=== PATIENT | female | born 1960 | race Native Hawaiian/Other Pacific Islander ===

== ENCOUNTER 2020-03-04 16:36 | Emergency (ER) | payer OTHER ==
[~2020-03-04] VITALS: Ht 165.1 cm; Wt 79.4 kg
[2020-03-04] MEDS ORDERED: BENADRYL ALLERG25 MG PO (18:11)
[2020-03-04 19:02] VITALS: BP 118/80; TEMP 97.7
== END 2020-03-04 19:06 | disposition home or self-care (01) ==
LOC: ED 16:36
DX: S93.491A Sprain of other ligament of right ankle, initial encounter (principal); X50.1XXA Overexertion from prolonged static or awkward postures, initial encounter; Y92.89 Other specified places as the place of occurrence of the external cause
CPT/HCPCS: 99283

== ENCOUNTER 2020-09-06 17:59 | Emergency (ER) | payer OTHER ==
[~2020-09-06] VITALS: Ht 165.1 cm; Wt 79.4 kg
[~2020-09-06 17:59] MED LIST: BENADRYL ALLERG25 MG PO
[2020-09-06 18:15] VITALS: TEMP 97.6
[2020-09-06 18:34] LABS: PLATELET COUNT 306 K/uL (152-353)
[2020-09-06 18:55] LABS: POTASSIUM 3.6 mmol/L (3.6-5.2); SODIUM 142 mmol/L (136-145)
[2020-09-06 20:00] VITALS: BP 136/79
== END 2020-09-06 20:00 | disposition home or self-care (01) ==
LOC: ED 17:59
PROVIDERS: Hospitalist
DX: R42 Dizziness and giddiness (principal)
CPT/HCPCS: 36415; 80053; 82550; 83880; 84484; 85027; 85610; 85730; 93005; 96360; 99284

== ENCOUNTER 2022-05-01 11:09 | Emergency (ER) | payer OTHER ==
[~2022-05-01] VITALS: Ht 167.6 cm; Wt 84.8 kg
[2022-05-01 11:15] VITALS: TEMP 98.6
[2022-05-01 12:56] VITALS: BP 131/74
== END 2022-05-01 12:58 | disposition home or self-care (01) ==
LOC: ED 11:09
DX: S29.011A Strain of muscle and tendon of front wall of thorax, initial encounter (principal); X50.9XXA Other and unspecified overexertion or strenuous movements or postures, initial encounter; Y93.E2 Activity, laundry; Y92.238 Other place in hospital as the place of occurrence of the external cause
CPT/HCPCS: 96372; 99283; J1720; J1885

== ENCOUNTER 2022-05-04 15:40 | Outpatient (CLI) | payer OTHER | END 2022-05-04 19:02 | disposition home or self-care (01) | LOC: RAD 15:40 | PROVIDERS: ATTEND Internal Medicine | DX: R07.89 Other chest pain (principal) ==

== ENCOUNTER 2022-08-30 14:16 | Outpatient (CLI) | payer OTHER | END 2022-08-30 22:07 | disposition home or self-care (01) | LOC: RAD 14:16 | PROVIDERS: ATTEND Internal Medicine | DX: M79.605 Pain in left leg (principal) ==